=== PATIENT | male | born 1955 | race Two or more races ===

== ENCOUNTER 2020-05-30 22:28 | Inpatient (IN) | payer OTHER ==
[~2020-05-30] VITALS: Ht 30.5 cm; Wt 74.9 kg
[2020-05-30 22:00] VITALS: BP 137/88
[2020-05-30] MEDS ORDERED: HYDROcodone-ACET 5/325MG TAB PO PRN (23:15)
[2020-05-31] MEDS ORDERED: MORPHINE SULF INJ 2 MG/ML SYRINGE 1ML IV PRN (00:45)
[2020-05-31 00:49] VITALS: BP 137/88
[2020-05-31 05:35] LABS: Basophils # (auto) 0.1 10 ^3/uL (0-0.2); Basophils % (auto) 0.8 % (0.0-2.0); Eosinophils # (auto) 0.4 10 ^3/uL (0-0.8); Eosinophils % (auto) 5.3 % (0.0-7.0); Hematocrit 40.7 % (41.0-53.0); Hemoglobin 13.8 g/dL (13.5-17.5); Lymphocytes % (auto) 35.8 % (10.0-50.0); Mean Corpuscular Hemoglobin 32.1 pg (28.0-32.0); Mean Corpuscular Volume 94.5 fL (80.0-100.0); Monocytes # (auto) 0.9 10 ^3/uL (0-1.3); Monocytes % (auto) 10.2 % (0.0-12.0); Neutrophils # (auto) 4.1 10 ^3/uL (1.6-8.6); Neutrophils % (auto) 47.9 % (37.0-80.0); Nucleated Red Blood Cells % 0.1 %; Platelet Count (auto) 207 10^3/uL (140-450); Red Blood Cells 4.31 10^6/uL (4.5-5.90); Red Cell Distribution Width 13.8 % (11.8-14.3); White Blood Cell 8.5 10^3/uL (4.4-10.8)
[2020-05-31 05:58] LABS: Albumin 3.4 g/dL (3.4-5.0); BUN/Creatinine Ratio 19.6; Bilirubin, Total 0.6 mg/dL (0.2-1.0); Calcium 8.4 mg/dL (8.5-10.1); Total Protein 6.7 g/dL (6.4-8.2)
[2020-05-31 05:59] VITALS: BP 125/62
[2020-05-31] MEDS: NITROGLYCERIN 0.4 MG SL TAB SL PRN (08:14)
[2020-05-31 08:29] VITALS: BP 113/72
[2020-05-31] MEDS ORDERED: HEPARIN SODIUM (PORCINE) 5000 UNITS/ML 1ML VIAL SC SCH (10:00)
[2020-05-31] MEDS: ASPirin 81 mg TAB PO SCH (10:15)
[2020-05-31] MEDS ORDERED: IOHEXOL 350 MG/ML 100ML IJ ONE (10:33)
[2020-05-31 12:38] VITALS: BP 112/77
[2020-05-31] MEDS: ENOXAPARIN SOD 80 MG/0.8ML SYRINGE SC SCH ×2 (12:47→22:52)
[2020-05-31] MEDS: NICOTINE 21MG/24 HR TOPICAL PATCH TD SCH (12:49)
[2020-05-31] MEDS: ISOSORBIDE MONONITRATE ER 60 MG TAB PO SCH (12:49)
[2020-05-31 17:00] VITALS: BP 119/65
[2020-05-31 22:00] VITALS: BP 106/67
[2020-05-31] MEDS: METOPROLOL TARTRATE 25 MG TAB PO SCH (22:00)
[2020-05-31] MEDS: ATORVASTATIN 20 MG TAB PO SCH (22:50)
[2020-06-01 05:25] VITALS: BP 112/65
[2020-06-01 08:30] VITALS: BP 110/67
[2020-06-01] MEDS: ASPirin 81 mg TAB PO SCH (09:47)
[2020-06-01] MEDS: METOPROLOL TARTRATE 25 MG TAB PO SCH ×2 (09:48→22:00)
[2020-06-01] MEDS: NICOTINE 21MG/24 HR TOPICAL PATCH TD SCH (09:50)
[2020-06-01] MEDS: ENOXAPARIN SOD 80 MG/0.8ML SYRINGE SC SCH ×2 (09:50→20:46)
[2020-06-01] MEDS: ISOSORBIDE MONONITRATE ER 60 MG TAB PO SCH (09:51)
[2020-06-01 12:37] VITALS: BP 115/76
[2020-06-01 12:46] LABS: Potassium 3.9 mmol/L (3.5-5.1)
[2020-06-01 13:08] LABS: Albumin 3.4 g/dL (3.4-5.0); BUN/Creatinine Ratio 19.1; Bilirubin, Total 0.8 mg/dL (0.2-1.0); Calcium 8.5 mg/dL (8.5-10.1); Magnesium 2.1 mg/dL (1.6-2.6); Phosphorus 2.4 mg/dL (2.5-4.90); Total Protein 7.1 g/dL (6.4-8.2)
[2020-06-01] MEDS ORDERED: KETOROLAC TROMETH 30 MG/ML 1ML VIAL IV ONE (13:15)
[2020-06-01] MEDS ORDERED: HYDROcodone-ACET 10/325MG TAB PO PRN (13:15)
[2020-06-01 16:30] VITALS: BP 114/72
[2020-06-01 22:00] VITALS: BP 140/85
[2020-06-01] MEDS: ATORVASTATIN 20 MG TAB PO SCH (22:14)
[2020-06-02 03:40] LABS: Urine Bacteria FEW /hpf (None Seen); Urine Blood Negative /uL (Negative); Urine Hyaline Cast FEW /lpf (0 - 2); Urine Mucus FEW (None Seen); Urine Specific Gravity 1.024 (1.001-1.035); Urine WBC <1 /hpf (0 - 3)
[2020-06-02 05:00] VITALS: BP 129/81
[2020-06-02 07:04] LABS: Basophils # (auto) 0.1 10 ^3/uL (0-0.2); Basophils % (auto) 0.7 % (0.0-2.0); Eosinophils # (auto) 0.4 10 ^3/uL (0-0.8); Eosinophils % (auto) 5.6 % (0.0-7.0); Hematocrit 40.8 % (41.0-53.0); Hemoglobin 14.1 g/dL (13.5-17.5); Lymphocytes # (auto) 2.7 10 ^3/uL (0.4-5.4); Lymphocytes % (auto) 34.8 % (10.0-50.0); Mean Corpuscular Hemoglobin 32.4 pg (28.0-32.0); Mean Corpuscular Hgb Conc. 34.6 g/dL (32.0-36.0); Mean Corpuscular Volume 93.5 fL (80.0-100.0); Monocytes # (auto) 0.9 10 ^3/uL (0-1.3); Monocytes % (auto) 11.8 % (0.0-12.0); Neutrophils # (auto) 3.7 10 ^3/uL (1.6-8.6); Neutrophils % (auto) 47.1 % (37.0-80.0); Platelet Count (auto) 214 10^3/uL (140-450); Red Blood Cells 4.36 10^6/uL (4.5-5.90); Red Cell Distribution Width 13.5 % (11.8-14.3); White Blood Cell 7.8 10^3/uL (4.4-10.8)
[2020-06-02 07:18] LABS: Albumin 3.4 g/dL (3.4-5.0); BUN/Creatinine Ratio 25.8; Calcium 8.3 mg/dL (8.5-10.1); Magnesium 2.1 mg/dL (1.6-2.6)
[2020-06-02 07:20] LABS: INR 0.98 (0.9-1.15)
[2020-06-02] MEDS: NITROGLYCERIN 0.4 MG SL TAB SL PRN (07:20)
[2020-06-02 07:21] LABS: Bilirubin, Total 0.9 mg/dL (0.2-1.0); Total Protein 6.8 g/dL (6.4-8.2)
[2020-06-02] MEDS ORDERED: LIDOCAINE 2%HCL (LOCAL ANESTH.) INJ 20ML MDV ONE (07:35)
[2020-06-02] MEDS ORDERED: HEPARIN SODIUM (PORCINE) 5000 UNITS/ML 1ML VIAL ONE (07:46)
[2020-06-02] MEDS ORDERED: ANGIOMAX 250 MG VIAL IV ONE (07:46)
[2020-06-02] MEDS ORDERED: SODIUM CHL 0.9% 50 ML ONE (07:47)
[2020-06-02] MEDS ORDERED: MIDAZOLAM HCL 1MG/1ML-2 ML VIAL ONE (07:47)
[2020-06-02] MEDS ORDERED: fentaNYL CITRATE 100 MCG/2 ML VL ONE (07:47)
[2020-06-02] MEDS ORDERED: VERAPAMIL 2.5MG/ML INJ 2ML VIAL IV ONE (07:47)
[2020-06-02] MEDS ORDERED: TICAGRELOR 90 MG TAB ONE (08:28)
[2020-06-02] MEDS ORDERED: ASPirin 325 MG TAB ONE (08:33)
[2020-06-02] MEDS: ASPirin 81 mg TAB PO SCH (10:00)
[2020-06-02] MEDS ORDERED: TICAGRELOR 90 MG TAB PO SCH (10:00)
[2020-06-02] MEDS: NICOTINE 21MG/24 HR TOPICAL PATCH TD SCH (11:00)
[2020-06-02] MEDS: METOPROLOL TARTRATE 25 MG TAB PO SCH (11:00)
[2020-06-02] MEDS: ISOSORBIDE MONONITRATE ER 60 MG TAB PO SCH (11:00)
[2020-06-02 13:00] VITALS: BP 133/88
== END 2020-06-02 14:51 | disposition home or self-care (01) | DRG 247 ==
LOC: TELE-WESTW 22:28
PROVIDERS: ADMIT Specialist; ATTEND Specialist
PROC: 4A023N7 Measurement of Cardiac Sampling and Pressure, Left Heart, Percutaneous Approach (ICD-10-PCS; principal; 2020-06-02)
PROC: 027034Z Dilation of Coronary Artery, One Artery with Drug-eluting Intraluminal Device, Percutaneous Approach (ICD-10-PCS; 2020-06-02)
PROC: B2111ZZ Fluoroscopy of Multiple Coronary Arteries using Low Osmolar Contrast (ICD-10-PCS; 2020-06-02)
DX: I24.9 Acute ischemic heart disease, unspecified (principal); J98.11 Atelectasis; I10 Essential (primary) hypertension; E66.9 Obesity, unspecified; R59.1 Generalized enlarged lymph nodes; F17.200 Nicotine dependence, unspecified, uncomplicated; J44.9 Chronic obstructive pulmonary disease, unspecified; Z20.822 Contact with and (suspected) exposure to COVID-19; E78.5 Hyperlipidemia, unspecified; Z68.24 Body mass index [BMI] 24.0-24.9, adult
CPT/HCPCS: 36415; 71275; 80053; 81001; 83735; 83880; 84100; 84443; 84484; 85025; 85610; 86850; 86900; 86901; 87081; 87426; 92928; 93306; 93458; 99152; 99153; C1874; G0378; J1885; J2250